=== PATIENT | female | born 1975 | race Caucasian/White ===

== ENCOUNTER 2018-06-13 10:51 | Outpatient (CLI) | payer BC ==
--- NOTE | 2018-06-14 11:38 | MMO ---
SCREENING MAMMOGRAMS: HISTORY: Screening. COMPARISON: 05/12/2017 and 01/09/2016 FINDINGS: The patient's mammogram is interpreted with the assistance of computer aided detection. Scattered fibroglandular densities are noted. There is a 1.5 cm focal asymmetry identified on the left CC view, anteriorly, just lateral to the nip ple, with no definite correlate seen on MLO imaging. IMPRESSION 1. BI-RADS Category 0: Incomplete. Further imaging assessment advised. 2. Focal asymmetry seen on left CC imaging. Recommend diagnostic mammography and focused breast ult rasound, as clinically warranted. POS: LARA
== END 2018-06-13 10:52 | disposition home or self-care (01) ==
LOC: SCSMAMMO 10:51
PROVIDERS: ATTEND Obstetrics & Gynecology
DX: Z12.31 Encounter for screening mammogram for malignant neoplasm of breast (principal)
CPT/HCPCS: 77067

== ENCOUNTER 2018-06-20 13:17 | Outpatient (CLI) | payer BC | END 2018-06-20 13:18 | disposition home or self-care (01) | LOC: BICMAMMO 13:17 | PROVIDERS: ATTEND Obstetrics & Gynecology | DX: R92.2 Inconclusive mammogram (principal) | CPT/HCPCS: G0279 ==

== ENCOUNTER 2020-10-18 14:17 | Outpatient (CLI) | payer BC ==
--- NOTE | 2020-10-18 14:57 | MMO ---
Bilateral MAMMO Bilat Screen [facility]. CLINICAL HISTORY: Patient is 45 years old and is seen for screening. The patient has no family history of breast cancer. The patient has no personal history of cancer. VIEWS: The views performed were: bilateral craniocaudal with tomosynthesis; bilateral mediolateral oblique with tomosynthesis; and left mediolateral oblique. FILMS COMPARED: The present examination has been compared to prior imaging studies performed at [facility] on 01/09/2016, 05/12/2017 and 06/20/2018. This study has been interpreted with the assistance of computer-aided detection. MAMMOGRAM FINDINGS: The breasts are heterogeneously dense, which could obscure a lesion on mammography. There are no suspicious masses, suspicious calcifications, or new areas of architectural distortion. IMPRESSION: THERE IS NO MAMMOGRAPHIC EVIDENCE OF MALIGNANCY. A ROUTINE FOLLOW-UP MAMMOGRAM IN 1 YEAR IS RECOMMENDED. THE RESULTS OF THIS EXAM WERE SENT TO THE PATIENT. ACR BI-RADS Category 1 - Negative MAMMOGRAPHY NOTE: 1. A negative mammogram report should not delay a biopsy if a dominant of clinically suspicious mass is present. 2. Approximately 10% to 15% of breast cancers are not detected by mammography. 3. Adenosis and dense breasts may obscure an underlying neoplasm. Reported by: RUDI KAMARA MD Electonically Signed: [id number]
== END 2020-10-18 14:18 | disposition home or self-care (01) ==
LOC: BICMAMMO 14:17
PROVIDERS: ATTEND Internal Medicine
DX: Z12.31 Encounter for screening mammogram for malignant neoplasm of breast (principal)
CPT/HCPCS: 77063; 77067

== ENCOUNTER 2022-01-05 08:45 | Outpatient (CLI) | payer BC | END 2022-01-05 08:46 | disposition home or self-care (01) | LOC: BICMAMMO 08:45 | PROVIDERS: ATTEND Student in an Organized Health Care Education/Training Program | DX: Z12.31 Encounter for screening mammogram for malignant neoplasm of breast (principal) | CPT/HCPCS: 77063; 77067 ==